=== PATIENT | male | born 1975 | race Caucasian/White ===

== ENCOUNTER 2024-01-12 18:08 | Emergency (ER) | payer OTHER, SELFPAY ==
[2024-01-12 18:18] VITALS: BP 146/84
[2024-01-12 18:47] LABS: COVID-19 Antigen Negative (Negative)
--- NOTE | 2024-01-12 19:04 | ED.GENMED ---
History of Present Illness
General
Chief Complaint: Weakness
Source: patient
Exam Limitations: none
Time Seen by Provider: 01/12/24 18:37
History of Present Illness
History of Present Illness:
This is a 48 year old male that comes in with c/o headache and body aches. Staes that every injury that he has ever had hurts. States that he has a headache that won't quit. States that he has some right sided sciatic pain down the right leg and
even when you touch his back he is uncomfortable. States that this started on night and he even went to bed early. States that his temp was 100 and he has been sweating. States that he had shaking chills, nausea, headache all over with
dizziness. Denies any chest pain, SOB, abd pain, vomiting, diarrhea, urinary burning.
Past History
Past History
ED Past Medical History: Other (Kidney stones, PNA with H1N1)
ED Past Surgical History: Orthopedic (Right shoulder surgery) and Urological (Lithotripsy)
Social History
Tobacco: Non-smoker
Alcohol: Occasional
Drug: None
Personal:
Living: with family
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
Family History
Family History: CAD
Review of Systems
Review of Systems
All Other Systems: ROS reviewed and negative except as documented in HPI and ROS
Constitutional: Reports fever, chills and other (Sweats)
EENT: Reports no symptoms
Respiratory: Reports cough; Denies trouble breathing
Cardiac: Reports no symptoms; Denies chest pain
ABD/GI: Reports nausea; Denies abdominal pain, vomiting or diarrhea
: Reports no symptoms
Musculoskeletal: Reports back pain (Low back pain) and other (Body aches)
Skin: Reports no symptoms
Neurological: Reports dizzy and headache
Psychiatric: Reports no symptoms
Phy Exam
General Physical Exam
General Presentation: mild distress
General age: appears stated age
General Skin: other (Sweaty)
General Habitus: normal
General Mental: alert
General Hydration: appears well hydrated
ENT Exam
ENT Exam: TM's normal, pharynx normal and neck supple
Eye Exam
Eye Exam: EOMI
Cardiovascular Exam
Cardiovascular Exam: regular rate/rhythm, no edema, no murmur and normal peripheral pulses
Pulmonary Exam
Pulmonary Exam: no respiratory distress, chest non tender, no rhonchi, no wheezing and other (Left lower lobe Crackles, Cry cough noted)
Gastrointestinal Exam
Gastrointestinal Exam: normal bowel sounds, non tender, soft, no organomegaly, no pulsatile mass and non distended
Musculoskeletal Exam
Musculoskeletal Exam: full ROM, back pain (low back with palpation), no edema and other (Negative Kernigs)
Skin Exam
Skin Exam: normal color, no rash, no petechia and other (Clammy)
Psychiatric Exam
Psychiatric Exam: normal mood/affect
Course
Orders/Labs/Results
Orders:
Orders
01/12/24 18:25
COVID-19 Antigen Urgent
Source: Nasal Swab
Influenza A+B Rapid Molecular Urgent
KAYY Source: Nasal Swab
Specimen Description:
01/12/24 19:02
0.9% Sodium Chloride 1000 ml [Nss] 1,000 ml IV BOLUS
Acetaminophen 1000MG/100Ml [Ofirmev] 1,000 mg in 100 ml IV ONCE
Acetaminophen IV Indication:: ED Narcotic Naive Pt-ONCE
Dexamethasone Sod Phosphate [Decadron] 20 mg IV NOW STA
Diphenhydramine [Benadryl] 25 mg IV NOW STA
Prochlorperazine [Compazine] 5 mg IV NOW STA
01/12/24 19:03
CR Chest - 2 Views Urgent
Comment:
Reason For Exam: fever, body aches
01/12/24 19:31
Complete Blood Count/With Diff Urgent
Comprehensive Metabolic Panel Urgent
Lactic Acid Urgent
01/12/24 20:22
Doxycycline [Vibramycin] 100 mg PO NOW STA
Abnormal Lab Results
01/12/24
19:31
WBC 4.7 L 10^3/uL
(4.8-10.8)
MCH 31.8 H pg
(27.0-31.0)
Absolute Lymphs (auto) 1.0 L 10^3/uL
(1.2-3.4)
Monocytes % 12.8 H %
(1.7-9.3)
Glucose 106 H mg/dl
(70-99)
01/12/24 19:31
01/12/24 19:31
WBC very slightly low. Glucose nonfasting. COVID negative, Lactic acid normal t 1.0
Vital Signs
Initial and Last Documented VS:
Initial Vital Signs
Temp Pulse Resp BP Pulse Ox
99.9 F 88 18 146/84 95
01/12/24 18:18 01/12/24 18:18 01/12/24 18:18 01/12/24 18:18 01/12/24 18:18
Last Documented Vital Signs
Temp Pulse Resp BP Pulse Ox
100.2 F 80 20 126/78 99
01/12/24 19:20 01/12/24 20:30 01/12/24 20:30 01/12/24 20:30 01/12/24 20:30
MDM/Problems Addressed
Differential Diagnosis Includes:
PNA, Menningitis
MDM/Problems Addressed:
This is a 48 year old male that comes in with multiple complaints. States that this started on . States that he has a severe headache and low back pain that he feels was his sciatic pain. States that his whole body hurts and that with the
headache he is dizzy.
Will get labs, COVID, Influenza, chest x-ray, Medication for headache and IV fluids.
Back into see patient. Patient states that he is feeling better. Explained that he does have a left lower lobe Pneumonia. will start patient on antibiotics. Patient to increase his water intake to 8-8oz glasses daily. Follow up with the family
doctor. Use Tylenol and ibuprofen for pain. Return with any concerns.
Chronic conditions affecting care:
PNA
Acute Exacerbation and/or Progression of Chronic Illness:
PNA
*Radiology
Radiology exam reviewed: radiology read reviewed (Chest-Left lower lobe Pneumonia)
*Pulse Oximetry
Patient hypoxic: no
*EKG
Interpreted by ED Provider?: NA
Rate: EKG- N/A
*Dietary Services Director Interpretation
Rate: Dietary Services Director- N/A
*Critical Care Note
Total Time (30-74mins, 75-104mins- exclusive of procedures): Not Applicable
ED Attending Note
-
Portions of this chart may have been created with voice recognition software.� Occasional wrong word or��sound alike� substitutions may have occurred due to the inherent limitations of voice recognition software.
Discharge Plan
Departure
Patient Disposition: Home (Routine Discharge)
Date of Disposition: 01/12/24
Time of Disposition: 20:24
Patient with high blood pressure during this ER visit?: No
Condition: Good
Covid-19: Negative COVID-19
Discharge Problem:
Pneumonia involving left lung
Instructions: Pneumonia, Adult (DC)
Prescriptions:
New
doxycycline hyclate 100 mg capsule
100 mg PO BID Qty: 19 0RF
Referrals:
UNKNOWN - PT DOES,NOT KNOW [Family Provider] -
Activity Restrictions/Additional Instructions:
As discussed, your blood work shows that your white blood cell count is slightly low. Otherwise your labs are normal. You are negative for COVID. You have a left lower lobe Pneumonia. You have been given your first dose of antibiotic here and a
prescription has been sent to your pharmacy. Please increase your water intake to 8-8oz glasses daily. You may also use Tylenol 1000mg every 6 hours for fever and pain and Ibuprofen 600mg every 6 hours with food. So if you take Tylenol at 9am the
Ibuprofen is due at 12 noon and the Tylenol at 3pm and Ibuprofen at 6pm. Follow up with the family doctor for recheck. IF YOU HAVE ANY OTHER CONCERNS PLEASE RETURN TO THE EMERGENCY ROOM.
Interventions
Interventions:
*Risk Screen - Suicide Last Done: 01/12/24 18:18
*General Assessment Last Done: 01/12/24 18:18
*Neglect/Abuse Screening Last Done: 01/12/24 19:23
ED- Fall Risk Assessment Last Done: 01/12/24 19:15
*ED COVID-19 Vaccine History Last Done: 01/12/24 18:18
*Nursing Disposition Last Done: 01/12/24 20:54
ED- Cardiac Assessment Last Done: 01/12/24 19:15
ED- Neurological Assessment Last Done: 01/12/24 19:15
ED- Pulmonary Assessment Last Done: 01/12/24 19:15
Discharge Date and Time
Discharge Date/Time: 01/12/24 20:55
Print Language: [id number]
[2024-01-12 19:19] VITALS: BMI 28.6
[2024-01-12 19:20] VITALS: BP 123/82
[2024-01-12] MEDS: NSS 1000 IV (19:32)
[2024-01-12] MEDS: DECADRON 20 MG IV (19:32)
[2024-01-12] MEDS: BENADRYL 25 MG IV (19:33)
[2024-01-12] MEDS: COMPAZINE 5 MG IV (19:33)
[2024-01-12] MEDS: OFIRMEV 100 IV (19:34)
[2024-01-12 19:49] LABS: % Basophils 0.4 % (0-2); % Eosinophils 0.2 % (0-6); % Immature Granulocytes 0.2 % (0-0.5); % Lymphocytes 21.2 % (20.5-51.1); % Monocytes 12.8 % (1.7-9.3); % Neutrophils 65.2 % (42.2-75.2); Absolute Monocytes 0.6 10^3/uL (0.1-0.6); Hematocrit 44.2 % (39.0-52.0); Hemoglobin 15.9 g/dL (13.0-18.0); Mean Corpuscular Hgb 31.8 pg (27.0-31.0); Mean Corpuscular Volume 88.4 fL (80.0-94.0); Mean Platelet Volume 9.6 fL (7.4-10.4); Nucleated Red Blood Cells % 0 % (-); Platelet Count 191 10^3/uL (130-400); Red Cell Dist. Width 11.9 % (11.5-14.5); White Blood Cell Count 4.7 10^3/uL (4.8-10.8)
[2024-01-12 20:09] VITALS: BP 120/86
[2024-01-12 20:11] LABS: ALT (SGPT) 44 U/L (0-50); AST (SGOT) 36 U/L (17-59); Albumin 4.2 g/dl (3.5-5.0); Alkaline Phosphatase 88 U/L (38-126); Blood Urea Nitrogen 14 mg/dl (9-20); Calcium 10.1 mg/dl (8.4-10.2); Carbon Dioxide 25 mmol/L (22-30); Chloride 101 mmol/L (98-107); Estimated Creatinine Clearance 101 ml/min; Glucose 106 mg/dl (70-99); Sodium 136 mmol/L (135-145); Total Bilirubin 0.9 mg/dl (0.2-1.3); Total Protein 6.7 g/dl (6.3-8.2); eGFR > 60.00
[2024-01-12 20:30] VITALS: BP 126/78
[2024-01-12] MEDS: VIBRAMYCIN 100 MG PO (20:44)
== END 2024-01-12 20:55 | disposition home or self-care (01) ==
LOC: EMR 18:08
PROVIDERS: Clinical Nurse Specialist Family Health; Emergency Medicine; EMERGENCY PHYSICIAN Student in an Organized Health Care Education/Training Program
DX: J18.9 Pneumonia, unspecified organism (principal); R51.9 Headache, unspecified; M54.50 Low back pain, unspecified
CPT/HCPCS: 96374; 96375; 96361; 99284; 71046; 80053; 83605; 85025; 87502; 87811